=== PATIENT | female | born 1990 | race Hispanic/Latino ===

== ENCOUNTER 2017-06-14 14:22 | Emergency (ER) | payer OTHER ==
[2017-06-14 17:22] LABS: Absolute Lymphocytes (CBC) 2.7 K/uL (0.7-4.9); Absolute Monocytes 0.6 K/uL (0.1-1.3); Absolute Neutrophil 5.5 K/uL (1.8-8.0); Basophils % 0.8 % (0-1.3); Eosinophils % 1.2 % (0-4.4); Hematocrit 39.2 % (36.0-45.0); Lymphocytes % 30.3 % (15.3-44.8); MCH 28.2 pg (27.0-35.0); MPV 8.3 fL (7.6-11.3); Monocytes % 6.7 % (3.3-12.3); RBC Red Blood Cell Count 4.51 M/uL (3.86-4.86)
[2017-06-14 17:34] LABS: Bicarbonate 31 mEq/L (21-31); Glucose Level 88 mg/dL (65-120); Potassium 3.6 mEq/L (3.6-5.0); Sodium Level 138 mEq/L (135-145)
[2017-06-14 17:35] LABS: BUN Blood Urea Nitrogen 8 mg/dL (6-20); Glomerular Filtration Rate > 90 mL/min (=/>90)
--- NOTE | 2017-06-14 18:20 | ER ---
Nurse's Notes [facility] Name: Debra Slaughter Age: 26 yrs Sex: Female : 1990 Arrival Date: 06/14/2017 Time: 14:26 Bed 16 Private MD: Diagnosis: Headache Presentation: 06/14 14:33 Presenting complaint: Patient states: i started having headache all my life, its starts hj on the back to the front of the head; denies nausea and vomiting; whenever i look at my back i feel like my ears are ringing;. Transition of care: patient was not received from another setting of care. Onset of symptoms was June 14, 2017. Care prior to arrival: None. 14:33 Method Of Arrival: Ambulatory 14:33 Acuity: DOMINICK 3 hj Triage Assessment: 14:37 Headache History: The patient has had previous headaches. General: Appears in no hj apparent distress. uncomfortable, Behavior is calm, cooperative, appropriate for age. Pain: Complains of pain in head Pain currently is 6 out of 10 on a pain scale. Pain began Also complains of. Neuro: Level of Consciousness is awake, alert, obeys commands, Oriented to person, place, time, situation, Appropriate for age. 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 - Family history:: not pertinent. - Social history:: Smoking status: Patient/guardian denies using tobacco. - Hospitalizations: : No recent hospitalization is reported. Screenin:44 Abuse screen: Denies threats or abuse. Denies injuries from another. Nutritional aj1 screening: No deficits noted. Tuberculosis screening: No symptoms or risk factors identified. 18:37 Fall Risk None identified. aj1 Assessment: 15:44 General: Appears in no apparent distress. uncomfortable, Behavior is calm, cooperative, aj1 appropriate for age. Pain: Complains of pain in occipital area and base of the skull Pain does not radiate. Pain began a year ago, has been getting worse Alleviated by nothing. Neuro: Level of Consciousness is awake, alert, obeys commands, Oriented to person, place, time, situation, Heater Mechanic are equal bilaterally Moves all extremities. Full function Gait is steady, Speech is normal, Facial symmetry appears normal, Pupils are PERRLA, Intact Reports dizziness, when turning his head headache. Cardiovascular: Patient's skin is warm and dry. Respiratory: Airway is patent Respiratory effort is even, unlabored, Respiratory pattern is regular, symmetrical. GI: No signs and/or symptoms were reported involving the gastrointestinal system. : No signs and/or symptoms were reported regarding the genitourinary system. EENT: No signs and/or symptoms were reported regarding the EENT system. Derm: No signs and/or symptoms reported regarding the dermatologic system. Skin is pink, warm \T\ dry. normal. Musculoskeletal: No signs and/or symptoms reported regarding the musculoskeletal system. Circulation, motion, and sensation intact. 16:45 Reassessment: Patient appears in no apparent distress at this time. [facility] previously documented assessment. Patient and/or family updated on plan of care and expected duration. Pain level reassessed. Patient is alert, oriented x 3, equal unlabored respirations, skin warm/dry/pink. 17:22 Reassessment: Patient appears in no apparent distress at this time. No changes from 1 previously documented assessment. Patient and/or family updated on plan of care and expected duration. Pain level reassessed. Patient is alert, oriented x 3, equal unlabored respirations, skin warm/dry/pink. 18:26 Reassessment: Patient appears in no apparent distress at this time. No [facility] from [facility] previously documented assessment. Patient and/or family updated on plan of care and expected duration. Pain level reassessed. Patient is alert, oriented x 3, equal unlabored respirations, skin warm/dry/pink. Vital Signs: 14:37 BP 142 / 88; Pulse 108; Resp 18; Temp 98.2(TE); Pulse Ox 100% on R/A; Weight 70.76 kg; hj Height 5 ft. 7 in. (170.18 cm); Pain 6/10; 16:41 BP 133 / 81; Pulse 67; Resp 15; Pulse Ox 100% on R/A; 5 17:22 BP 129 / 83; Pulse 80; Resp 18; Pulse Ox 100% on R/A; aj1 18:26 BP 120 / 77; Pulse 97; Resp 18; Pulse Ox 100% on R/A; aj1 14:37 Body Mass Index 24.43 (70.76 kg, 170.18 cm) [place] Coma Score: 18:18 Eye Response: spontaneous(4). Verbal Response: oriented(5). Motor Response: obeys rn commands(6). Total: 15. ED Course: 14:26 Patient arrived in ED. rg4 14:35 Triage completed. hj 14:37 Arm band placed on right wrist. hj 15:33 Ashley Castro RN is Primary Nurse. aj1 15:36 El Serna MD is Attending Physician. rn 15:44 Patient has correct armband on for positive identification. aj1 15:44 No provider procedures requiring assistance completed. aj1 16:30 Initial lab(s) drawn, by me, sent to lab. Inserted saline lock: 20 gauge in right aj1 antecubital area, using aseptic technique. Blood collected. 16:51 Radiology exam delayed due to lab results not completed at this time. (BUN/Creatinine) vm2 test not completed at this time. 18:02 CT Head Brain wo Cont In Process Unspecified. EDMS 18:02 CT Neck Angio In Process Unspecified. EDMS 18:37 IV discontinued, intact, bleeding controlled, No redness/swelling at site. Pressure aj1 dressing applied. Administered Medications: No medications were administered Outcome: 18:19 Discharge ordered by . rn 18:38 Discharged to home ambulatory. aj1 18:38 Condition: good 18:38 Discharge instructions given to patient, Instructed on discharge instructions, follow up and referral plans. Demonstrated understanding of instructions, follow-up care. 18:38 Patient left the ED. aj1 Signatures: Dispatcher [employer] EDAshley Camejo RN RN aj1 El Serna MD MD rn Joaquin, Henry, RN RN hj Garcia, Rubi rg4 Pamela Brennan [facility] Criss Davidson 2 Corrections: (The following items were deleted from the chart) 14:40 14:37 Pulse 108bpm; Resp 18bpm; Pulse Ox 100% RA; Temp 98.2F Temporal; 70.76 kg; Height hj 5 ft. 7 in.; BMI: 24.4; Pain 6/10; hj
--- NOTE | 2017-06-14 18:20 | EDPHYS ---
Physician Documentation [facility] Name: Debra Slaughter Age: 26 yrs Sex: Female : 1990 Arrival Date: 06/14/2017 Time: 14:26 Bed 16 Private MD: ED Physician El Serna HPI: 06/14 16:05 This 26 yrs old Female presents to ER via Ambulatory with complaints of rn Headache. 16:05 The patient complains of pain to the left occipital area and right occipital area. The rn patient describes the headache as aching. Onset: The symptoms/episode began/occurred 1 year(s) ago. Severity of symptoms: At its worst the pain was mild, in the emergency department the pain is unchanged. Headache History: The patient has had previous headaches and this one is similar to previous episodes. The patient has experienced similar episodes in the past, chronically. 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 States that has posterior headache, no focal neurological complaints. . 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 - Family history:: not pertinent. - Social history:: Smoking status: Patient/guardian denies using tobacco. - Hospitalizations: : No recent hospitalization is reported. ROS: 16:05 Constitutional: Negative for fever, chills, and weight loss, Eyes: Negative for injury, rn pain, redness, and discharge, Neck: Negative for injury, and swelling, Cardiovascular: Negative for chest pain, palpitations, and edema, Respiratory: Negative for shortness of breath, cough, wheezing, and pleuritic chest pain, Abdomen/GI: Negative for abdominal pain, nausea, vomiting, diarrhea, and constipation, Back: Negative for injury and pain, MS/Extremity: Negative for injury and deformity, Skin: Negative for injury, rash, and discoloration, Neuro: Negative for weakness, numbness, tingling, and seizure. Exam: 16:05 Constitutional: This is a well developed, well nourished patient who is awake, alert, rn and in no acute distress. Head/Face: Normocephalic, atraumatic. Eyes: Pupils equal round and reactive to light, extra-ocular motions intact. Lids and lashes normal. Conjunctiva and sclera are non-icteric and not injected. Cornea within normal limits. Periorbital areas with no swelling, redness, or edema. Neck: Trachea midline, no thyromegaly or masses palpated, and no cervical lymphadenopathy. Supple, full range of motion without nuchal rigidity, or vertebral point tenderness. No Meningismus. Back: No spinal tenderness. Full range of motion. Skin: Warm, dry, no rashes, no lesions, and no evidence of cellulitis. MS/ Extremity: Pulses equal, no cyanosis. Neurovascular intact. Full, normal range of motion. Equal circumference. Neuro: Awake and alert, GCS 15, oriented to person, place, time, and situation. Cranial nerves II-XII grossly intact. Motor strength 5/5 in all extremities. Sensory grossly intact. Cerebellar exam normal. Normal gait. Vital Signs: 14:37 BP 142 / 88; Pulse 108; Resp 18; Temp 98.2(TE); Pulse Ox 100% on R/A; Weight 70.76 kg; hj Height 5 ft. 7 in. (170.18 cm); Pain 6/10; 16:41 BP 133 / 81; Pulse 67; Resp 15; Pulse Ox 100% on R/A; mh5 17:22 BP 129 / 83; Pulse 80; Resp 18; Pulse Ox 100% on R/A; aj1 18:26 BP 120 / 77; Pulse 97; Resp 18; Pulse Ox 100% on R/A; aj1 14:37 Body Mass Index 24.43 (70.76 kg, 170.18 cm) [place] Coma Score: 18:18 Eye Response: spontaneous(4). Verbal Response: oriented(5). Motor Response: obeys rn commands(6). Total: 15. MDM: 15:36 Patient medically screened. rn 18:18 Differential diagnosis: migraine, tension headache, vasomotor headache, vasculitis, rn autoimmune syndrome. Data reviewed: vital signs, nurses notes, lab test result(s), radiologic studies, CT scan, and as a result, I will discharge patient. Counseling: I had a detailed discussion with the patient and/or guardian regarding: the historical points, exam findings, and any diagnostic results supporting the discharge/admit diagnosis, lab results, radiology results, the need for outpatient follow up, to return to the emergency department if symptoms worsen or persist or if there are any questions or concerns that arise at home. Special discussion: I discussed with the patient/guardian in detail that at this point there is no indication for admission to the hospital. It is understood, however, that if the symptoms persist or worsen the patient needs to return immediately for re-evaluation. Based on the history and exam findings, there is no indication for further emergent testing or inpatient evaluation. I discussed with the patient/guardian the need to see the neurologist for further evaluation of the symptoms. I discussed with the patient/guardian the need to see the meat grading machine operator for further evaluation of the symptoms. 06/14 15:50 Order name: Basic Metabolic Panel; Complete Time: 17:36 rn 06/14 15:50 Order name: CBC with Diff; Complete Time: 17:36 rn 06/14 15:48 Order name: CT Head Brain wo Cont rn 06/14 15:50 Order name: IV Start; Complete Time: 17:02 rn 06/14 15:50 Order name: CT Neck Angio rn 06/14 15:51 Order name: Urine Dipstick-Ancillary (obtain specimen); Complete Time: 17:01 rn 06/14 15:51 Order name: Urine Test (obtain specimen); Complete Time: 17:01 rn Administered Medications: No medications were administered Disposition: 06/14/17 18:19 Discharged to Home. Impression: Headache. - Condition is Stable. - Discharge Instructions: General Headache Without Cause. - Medication Reconciliation Form, Thank You Letter, Antibiotic Education, Prescription Opioid Use form. - Follow up: Private Physician; When: As needed; Reason: Recheck today's complaints, Re-evaluation by your physician. - Problem is an ongoing problem. - Symptoms have improved. Signatures: Dispatcher [employer] EDMS Ashley Castro RN RN aj1 El Serna MD MD rn Joaquin, Henry, RN RN hj
--- NOTE | 2017-06-14 18:44 | RAD REPORT ---
EXAM DESCRIPTION: CT - Neck Angio - 06/14/2017 6:01 pm CLINICAL HISTORY: Headache, possible aneurysm or dissection Due to technical factors with the mold car pusher system a report could not be immediately provided. e findings were telephoned to doctor Stockton at 1815 hours COMPARISON: None. TECHNIQUE: During dynamic enhancement using nonionic IV contrast, axial 2 millimeter thick images we re obtained. Sagittal and coronal reformatted images were generated and reviewed. FINDINGS: Aortic arch is 3 vessel. The carotid and vertebral vasculature show no dissection, stenosi s or vascular malformation. No luminal narrowing seen. No vascular abnormality is identifiable. Circl e of [place] is unremarkable. No aneurysm is identifiable. No bone or soft tissue abnormality identifiable. IMPRESSION: Negative CT angio neck from the aortic arch through the [place] of [place].
--- NOTE | 2017-06-14 18:44 | RAD REPORT ---
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 Findings telephoned to doc dai Stockton 1815 hours COMPARISON: None. TECHNIQUE: Axial 5 mm thick images of the head were obtained without IV contrast. All CT scans are performed using dose optimization technique as appropriate and may include automated exposure control or mA/KV adjustment according to patient size. FINDINGS: No intracranial hemorrhage, mass, edema or shift of mid-line structures. No acute infarcti on changes seen. No abnormal extra-axial fluid collections. Ventricles are normal. Mastoid air cells and visualized portions of the paranasal sinuses are clear. No acute bony findings. IMPRESSION: Negative non-contrast CT head examination.
== END 2017-06-14 18:38 | disposition home or self-care (01) ==
LOC: ER 14:22
DX: R51 Headache (principal)
CPT/HCPCS: 36415; 70450; 70498; 80048; 85025; 99284; Q9967

== ENCOUNTER 2019-02-26 21:14 | Emergency (ER) | payer OTHER ==
[2019-02-26] MEDS ORDERED: dexAMETHasone 4 MG TAB ONE (22:02)
[2019-02-26] MEDS ORDERED: LIDOCAINE VISCOUS 2% SOLN 15 ML UDC ONE (22:02)
[2019-02-26] MEDS ORDERED: IBUPROFEN 400 MG TAB ONE (22:02)
--- NOTE | 2019-02-27 00:08 | ER ---
Nurse's Notes [facility] Name: Debra Slaughter Age: 28 yrs Sex: Female : 1990 Arrival Date: 02/26/2019 Time: 21:15 Bed 16 Private MD: Diagnosis: Viral syndrome Presentation: 02/26 21:19 Presenting complaint: Patient states: LAST WEDNESDAY, FEELS LIKE I HAVE STREP. LOW GRADE rv FEVER AND MY THROAT IS LIKE A SANDPAPER. IT WENT AWAY I THOUGHT I GOT BETTER. AND THEN I START FEELING TIRED AND EXHAUSTED, FEELS LIKE IM SICK AGAIN. Transition of care: patient was not received from another setting of care. Onset of symptoms was February 25, 2019 at 08:00. Risk Assessment: Do you want to hurt yourself or someone else? Patient reports no desire to harm self or others. Initial Sepsis Screen: Does the patient meet any 2 criteria? No. Patient's initial sepsis screen is negative. Does the patient have a suspected source of infection? No. Patient's initial sepsis screen is negative. Care prior to arrival: None. 21:19 Method Of Arrival: Ambulatory 21:19 Acuity: DOMINICK 4 rv Triage Assessment: 21:33 General: Appears in no apparent distress. Behavior is calm, cooperative. Pain: Denies rv pain. EENT: Throat is clear. Neuro: Level of Consciousness is awake, alert, obeys commands, Oriented to person, place, time, situation. Derm: Skin is intact. 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 - Social history:: Smoking status: Patient/guardian denies using tobacco. - Ebola Screening: : No symptoms or risks identified at this time. Screenin:30 Abuse screen: Denies threats or abuse. Nutritional screening: No deficits noted. jb4 Tuberculosis screening: No symptoms or risk factors identified. Fall Risk None identified. Assessment: 21:30 General: Appears in no apparent distress. comfortable, Behavior is calm, cooperative. jb4 Pain: Complains of pain in throat, neck Pain does not radiate. Pain currently is 4 out of 10 on a pain scale. Neuro: Level of Consciousness is awake, alert, obeys commands, Oriented to person, place, time, situation. Cardiovascular: Patient's skin is warm and dry. Respiratory: Airway is patent Respiratory effort is even, unlabored, Respiratory pattern is regular, symmetrical. GI: No signs and/or symptoms were reported involving the gastrointestinal system. : No signs and/or symptoms were reported regarding the genitourinary system. EENT: Throat is clear is reddened with gag reflex present. Derm: Skin is intact, Skin is pink, warm \T\ dry. Musculoskeletal: Circulation, motion, and sensation intact. Range of motion: intact in all extremities. 22:30 Reassessment: Patient appears in no apparent distress at this time. Patient and/or jb4 family updated on plan of care and expected duration. Pain level reassessed. Patient is alert, oriented x 3, equal unlabored respirations, skin warm/dry/pink. 23:30 Reassessment: Patient appears in no apparent distress at this time. Patient and/or jb4 family updated on plan of care and expected duration. Pain level reassessed. Patient is alert, oriented x 3, equal unlabored respirations, skin warm/dry/pink. 02/27 00:16 Reassessment: Patient appears in no apparent distress at this time. Patient and/or jb4 family updated on plan of care and expected duration. Pain level reassessed. Patient is alert, oriented x 3, equal unlabored respirations, skin warm/dry/pink. Vital Signs: 02/26 21:23 BP 137 / 91; Pulse 98; Resp 19; Temp 98.5; Pulse Ox 97% on R/A; Weight 81.65 kg; Height rv 5 ft. 7 in. (170.18 cm) (R); 02/27 00:16 BP 126 / 72; Pulse 84; Resp 16; Pulse Ox 96% on R/A; jb4 02/26 21:23 Body Mass Index 28.19 (81.65 kg, 170.18 cm) rv ED Course: 02/26 21:15 Patient arrived in ED. ag3 21:15 Ryan Mohan MD is Attending Physician. ps1 21:23 Triage completed. rv 21:30 Patient has correct armband on for positive identification. Bed in low position. Call jb4 light in reach. Side rails up X 1. 21:34 Arm band placed on Patient placed in the treatment room, on a stretcher, Patient rv notified of wait time. 21:57 Simon Carmichael, RN is Primary Nurse. jb4 02/27 00:18 No provider procedures requiring assistance completed. Patient did not have IV access jb4 during this emergency room visit. Administered Medications: 02/26 22:15 Drug: Decadron 10 mg Route: PO; jb4 02/27 00:19 Follow up: Response: No adverse reaction jb4 02/26 22:15 Drug: Motrin 800 mg Route: PO; jb4 02/27 00:19 Follow up: Response: No adverse reaction; Pain is decreased jb4 02/26 22:19 Not Given (Patient Refused): Viscous Lidocaine Liquid (4 %) 10 ml Mucous Membrane once jb4 Outcome: 02/27 00:05 Discharge ordered by . ps1 00:18 Discharged to home ambulatory, with family. jb4 00:18 Condition: stable 00:18 Discharge instructions given to patient, Instructed on discharge instructions, follow up and referral plans. medication usage, Demonstrated understanding of instructions, follow-up care, medications, Prescriptions given X 1. 00:20 Patient left the ED. jb4 Signatures: Simon Carmichael, CHRISTIE RN jb4 Ryan Mohan MD MD ps1 Karson Aquino RN RN rv Cristiane Winters
--- NOTE | 2019-02-27 00:09 | EDPHYS ---
Physician Documentation [facility] Name: Debra Slaughter Age: 28 yrs Sex: Female : 1990 Arrival Date: 02/26/2019 Time: 21:15 Bed 16 Private MD: ED Physician Ryan Mohan HPI: 02/26 21:59 This 28 yrs old Female presents to ER via Ambulatory with complaints of Sore ps1 Throat. 21:59 started last Wednesday. Course was improving and now worse. Feels like sandpaper. Pain is ps1 moderate. Worse with swallowing. Feels like she has strep. . 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 - Social history:: Smoking status: Patient/guardian denies using tobacco. - Ebola Screening: : No symptoms or risks identified at this time. ROS: 02/27 00:03 Constitutional: Negative for fever, chills, and weight loss, Eyes: Negative for injury, ps1 pain, redness, and discharge, Cardiovascular: Negative for chest pain, palpitations, and edema, Respiratory: Negative for shortness of breath, cough, wheezing, and pleuritic chest pain, Abdomen/GI: Negative for abdominal pain, nausea, vomiting, diarrhea, and constipation, MS/Extremity: Negative for injury and deformity, Neuro: Negative for headache, weakness, numbness, tingling, and seizure, Psych: Negative for depression, anxiety, suicide ideation, homicidal ideation, and hallucinations. Neuro: Positive for fatigue. Exam: 00:03 Constitutional: This is a well developed, well nourished patient who is awake, alert, ps1 and in no acute distress. Head/Face: Normocephalic, atraumatic. Eyes: Pupils equal round and reactive to light, extra-ocular motions intact. Lids and lashes normal. Conjunctiva and sclera are non-icteric and not injected. Chest/axilla: Normal chest wall appearance and motion. Nontender with no deformity. No lesions are appreciated. Cardiovascular: Regular rate and rhythm. No gallops, murmurs, or rubs. Normal PMI, no JVD. No pulse deficits. Respiratory: Lungs have equal breath sounds bilaterally, clear to auscultation and percussion. No rales, rhonchi or wheezes noted. No increased work of breathing, no retractions or nasal flaring. Abdomen/GI: Soft, non-tender, with normal bowel sounds. No distension or tympany. No guarding or rebound. No evidence of tenderness throughout. Skin: Warm, dry with normal turgor. Normal color with no rashes, no lesions, and no evidence of cellulitis. MS/ Extremity: Pulses equal, no cyanosis. Neurovascular intact. Full, normal range of motion. Neuro: Awake and alert, GCS 15, oriented to person, place, time, and situation. Cranial nerves II-XII grossly intact. Sensory grossly intact. Vital Signs: 02/26 21:23 BP 137 / 91; Pulse 98; Resp 19; Temp 98.5; Pulse Ox 97% on R/A; Weight 81.65 kg; Height rv 5 ft. 7 in. (170.18 cm) (R); 02/27 00:16 BP 126 / 72; Pulse 84; Resp 16; Pulse Ox 96% on R/A; jb4 02/26 21:23 Body Mass Index 28.19 (81.65 kg, 170.18 cm) rv MDM: 02/26 21:18 Patient medically screened. ps1 02/27 00:04 Differential diagnosis: rylee-lomas virus, pharyngitis, viral syndrome. Data reviewed: ps1 vital signs, nurses notes, lab test result(s). 02/26 21:17 Order name: Strep; Complete Time: 22:50 ps1 02/26 22:30 Order name: Miner Screen Profile; Complete Time: 23:38 jb4 02/26 22:40 Order name: Throat Culture EDMS Administered Medications: 02/26 22:15 Drug: Decadron 10 mg Route: PO; jb4 02/27 00:19 Follow up: Response: No adverse reaction jb4 02/26 22:15 Drug: Motrin 800 mg Route: PO; jb4 02/27 00:19 Follow up: Response: No adverse reaction; Pain is decreased jb4 02/26 22:19 Not Given (Patient Refused): Viscous Lidocaine Liquid (4 %) 10 ml Mucous Membrane once jb4 Disposition: 02/27/19 00:05 Discharged to Home. Impression: Viral syndrome. - Condition is Stable. - Discharge Instructions: Viral Respiratory Infection. - Prescriptions for chlorpheniramine maleate 4 mg Oral Tablet - take 1 tablet by ORAL route every 6 hours As needed; 30 tablet. - Medication Reconciliation Form, Thank You Letter, Antibiotic Education, Prescription Opioid Use form. - Follow up: Emergency Department; When: As needed; Reason: Fever > 102 F, Trouble breathing, Worsening of condition. Follow up: Private Physician; When: As needed; Reason: Further diagnostic work-up, Recheck today's complaints, Continuance of care, Re-evaluation by your physician. - Problem is new. - Symptoms are unchanged. Signatures: Dispatcher [employer] EDMS Simon Carmichael RN RN jb4 Ryan Mohan MD MD ps1 Karson Aquino RN RN rv Corrections: (The following items were deleted from the chart) 02/27 00:20 00:05 02/27/2019 00:05 Discharged to Home. Impression: Viral syndrome. Condition is jb4 Stable. Forms are Medication Reconciliation Form, Thank You Letter, Antibiotic Education, Prescription Opioid Use. Follow up: Emergency Department; When: As needed; Reason: Fever > 102 F, Trouble breathing, Worsening of condition. Follow up: Private Physician; When: As needed; Reason: Further diagnostic work-up, Recheck today's complaints, Continuance of care, Re-evaluation by your physician. Problem is new. Symptoms are unchanged. ps1
[2019-02-27 01:34] VITALS: TEMP 98.5
[2019-02-27 01:35] VITALS: BP 126/72; O2SAT 96
== END 2019-02-27 00:20 | disposition home or self-care (01) ==
LOC: ER 21:14
DX: B34.9 Viral infection, unspecified (principal)
CPT/HCPCS: 87070; 36415; 86308; 87081; 99283; J8540

== ENCOUNTER 2019-09-05 12:37 | Emergency (ER) | payer OTHER ==
--- NOTE | 2019-09-05 14:21 | RAD REPORT ---
EXAM DESCRIPTION: RAD - Chest Single View - 09/05/2019 2:15 pm CLINICAL HISTORY: COUGH Chest pain. COMPARISON: No comparisons FINDINGS: Portable technique limits examination quality. The lungs are grossly clear. The heart is normal in size. No displaced fractures. IMPRESSION: No acute intrathoracic process suspected.
--- NOTE | 2019-09-05 14:27 | EDPHYS ---
Physician Documentation [facility] Name: Debra Slaughter Age: 28 yrs Sex: Female : 1990 Arrival Date: 09/05/2019 Time: 12:42 Bed 16 Private MD: ED Physician Ed Weiss HPI: 09/04 14:35 This 28 yrs old Female presents to ER via Ambulatory with complaints of kb Productive Cough, Chest Tightness. 14:35 The patient or guardian reports cough, that is intermittent, described as moderate, kb with no sputum. Onset: The symptoms/episode began/occurred 3 week(s) ago. Severity of symptoms: At their worst the symptoms were mild, moderate, in the emergency department the symptoms are unchanged. Modifying factors: The symptoms are alleviated by nothing, the symptoms are aggravated by nothing. Associated signs and symptoms: Pertinent positives: rhinorrhea, Pertinent negatives: chest pain, diarrhea, ear ache, fever, nausea, sore throat, vomiting. The patient has experienced similar episodes in the past, a few times. The patient has not recently seen a physician. Pt reports cough, congestion and sneezing that started 3 weeks ago. States the cough has lingered and now feels like it has gone to chest. tested for covid 2 weeks ago and was negative. Historical: - Allergies: 12:57 NKDA; ll1 - PMHx: 12:57 gest diabetes; ll1 - PSHx: 12:57 D \T\ C; ll1 - Immunization history:: Flu vaccine is not up to date. - Social history:: Smoking status: Patient reports the use of cigarette tobacco products, smokes one-half pack cigarettes per day, Patient/guardian denies using alcohol, street drugs. ROS: 14:34 Constitutional: Negative for fever, chills, and weight loss, Neck: Negative for injury, kb pain, and swelling, Cardiovascular: Negative for chest pain, palpitations, and edema, Abdomen/GI: Negative for abdominal pain, nausea, vomiting, diarrhea, and constipation, Back: Negative for injury and pain, MS/Extremity: Negative for injury and deformity, Skin: Negative for injury, rash, and discoloration, Neuro: Negative for headache, weakness, numbness, tingling, and seizure. 14:34 ENT: Positive for rhinorrhea, sinus congestion. 14:34 Respiratory: Positive for cough, Negative for dyspnea on exertion, hemoptysis, orthopnea, pleurisy, shortness of breath, sputum production, wheezing. Exam: 14:34 Constitutional: This is a well developed, well nourished patient who is awake, alert, kb and in no acute distress. Head/Face: Normocephalic, atraumatic. ENT: Nares patent. No nasal discharge, no septal abnormalities noted. Tympanic membranes are normal and external auditory canals are clear. Oropharynx with no redness, swelling, or masses, exudates, or evidence of obstruction, uvula midline. Mucous membranes moist. Neck: Trachea midline, no thyromegaly or masses palpated, and no cervical lymphadenopathy. Supple, full range of motion without nuchal rigidity, or vertebral point tenderness. No Meningismus. Chest/axilla: Normal chest wall appearance and motion. Nontender with no deformity. No lesions are appreciated. Cardiovascular: Regular rate and rhythm with a normal S1 and S2. No gallops, murmurs, or rubs. Normal PMI, no JVD. No pulse deficits. Respiratory: Lungs have equal breath sounds bilaterally, clear to auscultation and percussion. No rales, rhonchi or wheezes noted. No increased work of breathing, no retractions or nasal flaring. Abdomen/GI: Soft, non-tender, with normal bowel sounds. No distension or tympany. No guarding or rebound. No evidence of tenderness throughout. Skin: Warm, dry with normal turgor. Normal color with no rashes, no lesions, and no evidence of cellulitis. MS/ Extremity: Pulses equal, no cyanosis. Neurovascular intact. Full, normal range of motion. Neuro: Awake and alert, GCS 15, oriented to person, place, time, and situation. Cranial nerves II-XII grossly intact. Motor strength 5/5 in all extremities. Sensory grossly intact. Cerebellar exam normal. Normal gait. Vital Signs: 12:54 BP 135 / 76; Pulse 99; Resp 18; Temp 98.9; Pulse Ox 99% ; Pain 3/10; ll1 MDM: 12:59 Patient medically screened. kb 14:23 Data reviewed: vital signs, nurses notes. Data interpreted: Pulse oximetry: on room air kb is 99 %. Interpretation: normal. Counseling: I had a detailed discussion with the patient and/or guardian regarding: the historical points, exam findings, and any diagnostic results supporting the discharge/admit diagnosis, radiology results, the need for outpatient follow up, a family practitioner, to return to the emergency department if symptoms worsen or persist or if there are any questions or concerns that arise at home. 09/04 13:11 Order name: Chest Single View XRAY; Complete Time: 14:23 kb Administered Medications: No medications were administered Disposition: 09/05 06:03 Co-signature as Attending Physician, Ed Weiss MD I agree with the assessment and kdr plan of care. Disposition: 09/05/19 14:26 Discharged to Home. Impression: Cough. - Condition is Stable. - Discharge Instructions: Cough, Adult, [id number], Allergies, [id number]. - Medication Reconciliation Form, Thank You Letter, Antibiotic Education, Prescription Opioid Use form. - Follow up: Emergency Department; When: As needed; Reason: Worsening of condition. Follow up: Private Physician; When: 2 - 3 days; Reason: Recheck today's complaints, Continuance of care, Re-evaluation by your physician. Signatures: Dispatcher [employer] EDMS Gertrudis Abel, CAR HEAD LINER INSTALLER-C CAR HEAD LINER INSTALLER-Ckb Ed Weiss MD MD kdr Amanda Lozada RN RN Justina Kan RN RN ll1 Corrections: (The following items were deleted from the chart) 09/04 14:35 14:26 09/05/2019 14:26 Discharged to Home. Impression: Cough. Condition is Stable. vc Forms are Medication Reconciliation Form, Thank You Letter, Antibiotic Education, Prescription Opioid Use. Follow up: Emergency Department; When: As needed; Reason: Worsening of condition. Follow up: Private Physician; When: 2 - 3 days; Reason: Recheck today's complaints, Continuance of care, Re-evaluation by your physician. kb
--- NOTE | 2019-09-05 14:27 | ER ---
Nurse's Notes [facility] Name: Debra Slaughter Age: 28 yrs Sex: Female : 1990 Arrival Date: 09/05/2019 Time: 12:42 Bed 16 Private MD: Diagnosis: Cough Presentation: 09/04 12:54 Chief complaint: Patient states: Cough for 3 weeks. Lots of sinus drainage. No known ll1 fever. and child got sick 2 weeks ago but they are better. Now has chest tightness and upper back aches for 4 days. Husbands covid test negative. Requets covid test. Coronavirus screen: Surgical mask placed on patient. Patient moved to private room, placed in contact and droplet isolation with eye protection until further assessment. Patient reports a cough. Patient denies shortness of breath or difficulty breathing. Patient denies measured and/or subjective temperature greater than 100.4F prior to today's visit. Patient denies travel on a cruise ship or to a country the [facility] currently lists as an affected area. Patient denies contact with known and/or suspected case of COVID-19. Ebola Screen: Patient denies travel to an Ebola-affected area in the 21 days before illness onset. Initial Sepsis Screen: Does the patient meet any 2 criteria? HR > 90 bpm. No. Patient's initial sepsis screen is negative. Risk Assessment: Do you want to hurt yourself or someone else? Patient reports no desire to harm self or others. Onset of symptoms was August 13, 2019. 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 - Social history:: Smoking status: Patient reports the use of cigarette tobacco products, smokes one-half pack cigarettes per day, Patient/guardian denies using alcohol, street drugs. Screenin:35 Abuse screen: Denies threats or abuse. Nutritional screening: No deficits noted. ll1 Tuberculosis screening: No symptoms or risk factors identified. Fall Risk None identified. Total Estrella Fall Scale indicates No Risk (0-24 pts). Assessment: 13:00 General: Appears in no apparent distress. Behavior is calm, cooperative. Pain: ll1 Complains of pain in chest Pain currently is 3 out of 10 on a pain scale. Quality of pain is described as pressure, Pain began 1 day ago. Pain: Pain began 2-3 days ago. Neuro: No deficits noted. Cardiovascular: No deficits noted. Respiratory: Reports cough that is non-productive, + nasal congestion Airway is patent Trachea midline Respiratory effort is even, unlabored, Respiratory pattern is regular, symmetrical, Breath sounds are clear bilaterally. 14:34 Reassessment: Patient appears in no apparent distress at this time. Patient and/or vc family updated on plan of care and expected duration. Pain level reassessed. Patient is alert, oriented x 3, equal unlabored respirations, skin warm/dry/pink. Vital Signs: 12:54 BP 135 / 76; Pulse 99; Resp 18; Temp 98.9; Pulse Ox 99% ; Pain 3/10; ll1 ED Course: 12:42 Patient arrived in ED. fj1 12:45 Gertrudis Abel F[facility]-C [facility] kb 12:45 Ed Weiss MD is Attending Physician. kb 12:56 Triage completed. ll1 12:57 Arm band placed on Patient placed in an exam room, on a stretcher. ll1 13:02 Justina Irvin RN is Primary Nurse. ll1 14:15 Chest Single View XRAY In Process Unspecified. EDMS 14:32 Justina Irvin RN is Primary Nurse. ll1 14:35 Patient has correct armband on for positive identification. Bed in low position. Call ll1 light in reach. Side rails up X 1. 14:35 No provider procedures requiring assistance completed. Patient did not have IV access vc during this emergency room visit. Administered Medications: No medications were administered Outcome: 14:26 Discharge ordered by MD. kb 14:34 Discharged to home ambulatory. vc 14:34 Condition: good 14:34 Discharge instructions given to patient, Instructed on discharge instructions, follow up and referral plans. Demonstrated understanding of instructions, follow-up care. 14:35 Patient left the ED. vc Signatures: Dispatcher [employer] EDAR Gertrudis Abel FNP-C FNP-Ckb Calcote, Vanessa, RN RN vc Saad Montes [facility] Justina Irvin RN RN ll1 Corrections: (The following items were deleted from the chart) 12:58 12:54 Chief complaint: Patient states: Cough for 3 weeks. Lots of sinus drainage. No ll1 known fever. and child got sick 2 weeks ago but they are better. Now has chest tightness and upper back aches for 4 days. Husbands covid test negative. ll1
[2019-09-05 14:39] VITALS: BP 135/76; TEMP 98.9; O2SAT 99
--- OUTSIDE RECORDS SUMMARY | 2019-09-05 16:36 | XMS REPORT | Continuity of Care Document ---
:1990 Author Organization [employer] Care Team Providers Name Role Phone [employer] Unavailable Un available Problems Problem Status Onset Classification Date Comments Sourc e Date Reported Raynaud's syndrome Active Diagnosis 05/03/2014 Allison Najam Keratoconjunctivitis Active Diagnosis 05/03/2014 Allison sicca, not specified as Najam Sjogren's Elevated TOSHA Active Diagnosis 05/03/2014 Allison Najam Lumbago Active Diagnosis 05/03/2014 Allison Najam Medications Medication Details Route Status Patient Ordering Order Source Instructions Provider Date Meloxicam 1 tablet Orally Active 15 MG Orally Najam 05/02/19 Allison Once a day prn 15 Najam Allergies, Adverse Reactions, Alerts Substance Category Reaction Severity Reaction Status Date Comments S ource type Reported N.K.D.A. Adverse Info Not Adverse Active Sabe en Reaction Available Reaction 5 Lorena m Immunizations No Data Provided for This Section Results No Data Provided for This Section Pathology Reports No Data Provided for This Section Diagnostic Reports No Data Provided for This Section Consultation Notes No Data Provided for This Section Discharge Summaries No Data Provided for This Section History and Physicals No Data Provided for This Section Vital Signs Vital Sign Value Date Comments Source Height 66 05/02/2014 Allison Najam Diastolic (mm Hg) 79 05/02/2014 Allison Jane am Systolic (mm Hg) 124 05/02/2014 Allison Lorena m Weight 150 05/02/2014 Allison Najam Encounters Location Location Encounter Encounter Reason Attending ADM DC Stat us Source Details Type Number For Provider Date Date Visit Rheumatology Positive [id number] 05/02 05/02 [facility] TOSHA [id number] /2014 Najam [id number] Procedures No Data Provided for This Section Assessment and Plan No Data Provided for This Section Plan of Care No Data Provided for This Section Social History Social History Date Source Social History ElementQualifiersDate Reported 05/02/2014 Allison Najam Smoking status: . Are you a: Current Smoker May 02, 2014 alcohol no. May 02, 2014 Family History No Data Provided for This Section Advance Directives No Data Provided for This Section Functional Status No Data Provided for This Section
== END 2019-09-05 14:35 | disposition home or self-care (01) ==
LOC: ER 12:37
DX: R05 Cough (principal); F17.210 Nicotine dependence, cigarettes, uncomplicated
CPT/HCPCS: 71045; 99283

== ENCOUNTER 2021-08-19 18:23 | Emergency (ER) | payer OTHER ==
--- NOTE | 2021-08-19 19:59 | RAD REPORT ---
EXAM DESCRIPTION: Melo Single View08/19/2021 7:54 pm CLINICAL HISTORY: sob COMPARISON: 2019 FINDINGS: The lungs appear clear of acute infiltrate. The heart is normal size IMPRESSION: No acute abnormalities displayed
[2021-08-19 20:17] LABS: Hematocrit 31.6 % (36.0-45.0); Lymphocytes % 36.1 % (15.3-44.8); MPV 6.9 fL (7.6-11.3); RBC Red Blood Cell Count 3.72 M/uL (3.86-4.86)
[2021-08-19 20:18] LABS: Protime INR 1.18
[2021-08-19 20:35] LABS: Bilirubin Direct 0.1 mg/dL (0-0.2); Bilirubin Total 0.2 mg/dL (0.2-1.0); Magnesium 1.8 mg/dL (1.8-2.4); Potassium 4.1 mmol/L (3.5-5.1); Protein, Total 6.3 g/dL (6.4-8.2); Troponin High Sensitivity 3.7 pg/mL (<58.9)
[2021-08-19] MEDS ORDERED: NA CHLORIDE 0.9% 1,000 ML ONE (20:50)
--- NOTE | 2021-08-19 21:40 | RAD REPORT ---
EXAM DESCRIPTION: CT - Chest For Pe Angio - 08/19/2021 9:21 pm CLINICAL HISTORY: Chest pain COMPARISON: None. TECHNIQUE: Dynamically enhanced axial 3 mm thick images of the chest were obtained during administra tion of <100> mL Isovue 370 IV contrast. Coronal and oblique reconstruction images were generated and reviewed. Exam utilizes a protocol for optimal evaluation of pulmonary arterial tree. Maximum intensity projections 3D imaging was utilized All CT scans are performed using dose optimization technique as appropriate and may include automated exposure control or mA/KV adjustment according to patient size. FINDINGS: A pulmonary embolus is not seen. A thoracic aortic aneurysm is not noted. A pleural effusion is not seen. A pericardial effusion is not seen. A lung consolidation is not present. IMPRESSION: Negative for a pulmonary embolism.
--- NOTE | 2021-08-19 22:25 | ER ---
Nurse's Notes [facility] Name: Debra Slaughter Age: 30 yrs Sex: Female : 1990 Arrival Date: 08/19/2021 Time: 18:24 Bed 18 Private MD: Diagnosis: Chest pain, unspecified;Dehydration Presentation: 08/19 18:33 Chief complaint: Patient states: she had a hysterectomy, appendectomy, bowel resection ap3 and a partial cecectomy on August 05 for stage 4 endometriosis. Then due to complications, and becoming septic from a bowel leak patient then had an ileostomy placed on 08/09/2021. Patient comes in today after speaking with her surgeon for feeling weak, and was getting low blood pressure readings. Patient reports receiving 2 bags of fluids in the office yesterday and another bag of fluids at home today. Patient presents with a right upper arm PICC line in place. Coronavirus screen: At this time, the client does not indicate any symptoms associated with coronavirus-19. Ebola Screen: No symptoms or risks identified at this time. Initial Sepsis Screen: Does the patient meet any 2 criteria? No. Patient's initial sepsis screen is negative. Does the patient have a suspected source of infection? No. Patient's initial sepsis screen is negative. Risk Assessment: Do you want to hurt yourself or someone else? Patient reports no desire to harm self or others. Onset of symptoms was August 2021. 18:33 Method Of Arrival: Ambulatory ap3 18:33 Acuity: DOMINICK 3 ap3 Triage Assessment: 18:39 General: Appears uncomfortable, Behavior is calm. Pain: Complains of pain in chest and ap3 abdomen Quality of pain is described as tightness. Neuro: Level of Consciousness is awake, alert, obeys commands, Oriented to person, place, time, situation, Appropriate for age Speech is normal. Cardiovascular: Patient's skin is warm and dry. Respiratory: Reports shortness of breath Airway is patent Respiratory effort is even, unlabored, Respiratory pattern is regular, symmetrical, Onset: The symptoms/episode began/occurred gradually, the patient has mild shortness of breath. GI: Ileostomy site Ostomy appliance is intact. Reports lower abdominal pain, upper abdominal pain. 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 - Social history:: Smoking status: Patient denies any tobacco usage or history of. Screenin:40 Abuse screen: Denies threats or abuse. Nutritional screening: Had unintentional weight ap3 loss of 10 pounds or more. Has had N/V for 3 or more days. Tuberculosis screening: No symptoms or risk factors identified. 22:22 Fall Risk IV access (20 points). kd3 Assessment: 22:21 Cardiovascular: Rhythm is sinus rhythm. Respiratory: Airway is patent Trachea midline kd3 Respiratory effort is even, unlabored, Breath sounds are clear. Vital Signs: 18:33 BP 114 / 77; Pulse 89; Resp 17; Temp 97.8; Pulse Ox 100% ; Weight 54.43 kg; Height 5 ap3 ft. 6 in. (167.64 cm); 20:14 BP 105 / 65; Pulse 76; Pulse Ox 100% on R/A; oe 20:16 BP 113 / 64; Pulse 76; Pulse Ox 100% on R/A; oe 20:18 BP 119 / 71; Pulse 79; Pulse Ox 100% ; oe 22:23 BP 107 / 63; Pulse 75; Resp 16; Pulse Ox 99% on R/A; kd3 18:33 Body Mass Index 19.37 (54.43 kg, 167.64 cm) ap3 ED Course: 18:24 Patient arrived in ED. ja2 18:30 Archie Sommers PA is PHCP. cp 18:30 El Serna MD is Attending Physician. cp 18:36 Triage completed. ap3 18:40 Arm band placed on left wrist. ap3 19:15 Kristel Tomlinson, CHRISTIE is Primary Nurse. kd3 19:55 XRAY Chest (1 view) In Process Unspecified. EDMS 21:22 CT Chest For PE Angio In Process Unspecified. EDMS 22:22 Patient has correct armband on for positive identification. Client placed on continuous kd3 cardiac and pulse oximetry monitoring. NIBP monitoring applied. 22:45 No provider procedures requiring assistance completed. pt came with right upper picc kd3 from home. Administered Medications: 20:53 Drug: NS 0.9% 1000 ml Route: IV; Rate: 1 bolus; Site: right upper arm; vc1 22:45 Follow up: Response: No adverse reaction; IV Status: Completed infusion kd3 Medication: 22:22 VIS not applicable for this client. kd3 Outcome: 22:24 Discharge ordered by . ingrid 22:45 Discharged to home ambulatory. kd3 22:45 Condition: stable 22:45 Discharge instructions given to patient, Instructed on discharge instructions, follow up and referral plans. Demonstrated understanding of instructions, follow-up care. 22:46 Patient left the ED. kd3 Signatures: Dispatcher [employer] EDMS Archie Sommers PA PA cp Espinosa, Orlando oe Prokisch, Amanda, RN RN ap3 Ines Sosa Kyli, RN RN kd3 Amanda Lozada RN RN vc1
--- NOTE | 2021-08-19 22:25 | EDPHYS ---
Physician Documentation [facility] Name: Debra Slaughter Age: 30 yrs Sex: Female : 1990 Arrival Date: 08/19/2021 Time: 18:24 Bed 18 Private MD: ED Physician El Serna HPI: 08/19 19:20 This 30 yrs old Female presents to ER via Ambulatory with complaints of cp Shortness Of Breath, Chest Pain, Low Blood Pressure. 19:20 The patient has shortness of breath at rest. cp 19:20 Onset: The symptoms/episode began/occurred today. Duration: The symptoms are cp continuous, and are unchanged since they started. Associated signs and symptoms: Pertinent positives: chest pain, low blood pressure, Pertinent negatives: productive cough, diaphoresis, fever, vomiting. Severity of symptoms: in the emergency department the symptoms are unchanged despite home interventions. 19:20 Patient reports having recent hysterectomy and appendectomy for endometriosis on cp 08-05-2021. Complications occurred that caused her to be septic and need a bowel resection. 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 - Social history:: Smoking status: Patient denies any tobacco usage or history of. ROS: 19:25 Constitutional: Negative for body aches, chills, fever, poor PO intake. cp 19:25 Eyes: Negative for injury, pain, redness, and discharge. cp 19:25 ENT: Negative for drainage from ear(s), ear pain, sore throat, difficulty swallowing, difficulty handling secretions. 19:25 Cardiovascular: Positive for chest pain. 19:25 Respiratory: Positive for shortness of breath, Negative for wheezing. 19:25 Abdomen/GI: Positive for nausea, Negative for abdominal pain, constipation. 19:25 Neuro: Negative for altered mental status, headache, weakness. 19:25 All other systems are negative. Exam: 19:30 Constitutional: The patient appears in no acute distress, alert, awake, cp non-diaphoretic, non-toxic, well developed, well nourished. 19:30 Head/Face: Normocephalic, atraumatic. cp 19:30 Eyes: Periorbital structures: appear normal, Conjunctiva: normal, no exudate, no injection, Sclera: no appreciated abnormality, Lids and lashes: appear normal, bilaterally. 19:30 ENT: External ear(s): are unremarkable, Nose: is normal, Mouth: Lips: moist, Oral mucosa: pink and intact, moist, Posterior pharynx: Airway: no evidence of obstruction, patent. 19:30 Neck: ROM/movement: is normal, is supple, without pain, no range of motions limitations. 19:30 Chest/axilla: Inspection: normal, Palpation: is normal, no crepitus, no tenderness. 19:30 Cardiovascular: Rate: normal, Rhythm: regular. 19:30 Respiratory: the patient does not display signs of respiratory distress, Respirations: normal, no use of accessory muscles, no retractions, labored breathing, is not present, Breath sounds: are clear throughout, no decreased breath sounds, no stridor, no wheezing. 19:30 Abdomen/GI: Inspection: scar(s), are noted in the midline, RLQ ileostomy, Bowel sounds: active, all quadrants, Palpation: abdomen is soft and non-tender, in all quadrants. 19:30 Back: CVA tenderness, is absent. 19:30 Skin: cellulitis, is not appreciated, no rash present. 19:30 Neuro: Orientation: to person, place \T\ time. Mentation: is normal, Motor: moves all fours, strength is normal, Sensation: is normal. 19:59 ECG was reviewed by the Attending Physician. cp Vital Signs: 18:33 BP 114 / 77; Pulse 89; Resp 17; Temp 97.8; Pulse Ox 100% ; Weight 54.43 kg; Height 5 ap3 ft. 6 in. (167.64 cm); 20:14 BP 105 / 65; Pulse 76; Pulse Ox 100% on R/A; oe 20:16 BP 113 / 64; Pulse 76; Pulse Ox 100% on R/A; oe 20:18 BP 119 / 71; Pulse 79; Pulse Ox 100% ; oe 22:23 BP 107 / 63; Pulse 75; Resp 16; Pulse Ox 99% on R/A; kd3 18:33 Body Mass Index 19.37 (54.43 kg, 167.64 cm) ap3 MDM: 18:49 Patient medically screened. 22:24 Data reviewed: vital signs, nurses notes, lab test result(s), radiologic studies, CT cp scan, plain films. 22:24 Differential diagnosis: Myocardial Infarction pneumonia, Pneumothorax pulmonary edema, cp Pulmonary Embolism Sepsis. Test interpretation: by ED physician or midlevel provider: ECG, plain radiologic studies. Counseling: I had a detailed discussion with the patient and/or guardian regarding: the historical points, exam findings, and any diagnostic results supporting the discharge/admit diagnosis, lab results, radiology results, to return to the emergency department if symptoms worsen or persist or if there are any questions or concerns that arise at home. 08/19 19:18 Order name: Basic Metabolic Panel; Complete Time: 20:41 cp 08/19 20:41 Interpretation: Normal except: CL 109; CRE 0.51. cp 08/19 19:18 Order name: CBC with Diff; Complete Time: 20:29 cp 08/19 20:29 Interpretation: Normal except: RBC 3.72; HGB 10.5; HCT 31.6; PLT 543; MPV 6.9. cp 08/19 19:18 Order name: LFT's; Complete Time: 20:41 cp 08/19 22:17 Interpretation: Normal except: AST 11; ALK 43; TP 6.3; ALB 3.0; A/G 0.9. cp 08/19 19:18 Order name: Magnesium; Complete Time: 20:41 cp 08/19 19:18 Order name: NT PRO-BNP; Complete Time: 20:41 cp 08/19 19:18 Order name: PT-INR; Complete Time: 20:29 cp 08/19 19:18 Order name: Orthostatics; Complete Time: 20:26 cp 08/19 19:18 Order name: Troponin HS; Complete Time: 20:41 cp 08/19 19:18 Order name: XRAY Chest (1 view); Complete Time: 20:07 cp 08/19 20:07 Interpretation: Report review. 08/19 19:18 Order name: EKG; Complete Time: 19:19 cp 08/19 19:18 Order name: Cardiac monitoring; Complete Time: 20:13 cp 08/19 19:18 Order name: EKG - Nurse/Tech; Complete Time: 20:12 cp 08/19 20:42 Order name: CT Chest For PE Angio; Complete Time: 22:14 cp 08/19 22:14 Interpretation: Report reviewed. 08/19 19:18 Order name: IV Saline Lock; Complete Time: 20:12 cp 08/19 19:18 Order name: Labs collected and sent; Complete Time: 20:12 cp 08/19 19:18 Order name: O2 Per Protocol; Complete Time: 20:12 cp 08/19 19:18 Order name: O2 Sat Monitoring; Complete Time: 20:12 cp 08/19 22:14 Order name: PO challenge; Complete Time: 22:38 cp EC:59 Rate is 75 beats/min. Rhythm is regular. IA interval is normal. QRS interval is normal. cp QT interval is normal. T waves are Inverted in lead aVR. Interpreted by me. Reviewed by me. Administered Medications: 20:53 Drug: NS 0.9% 1000 ml Route: IV; Rate: 1 bolus; Site: right upper arm; vc1 22:45 Follow up: Response: No adverse reaction; IV Status: Completed infusion kd3 Disposition Summary: 08/19/21 22:24 Discharge Ordered Location: Home cp Problem: new cp Symptoms: have improved cp Condition: Stable cp Diagnosis - Chest pain, unspecified cp - Dehydration cp Followup: cp - With: Private Physician - When: 1 - 2 days - Reason: Recheck today's complaints Discharge Instructions: - Discharge Summary Sheet cp - Nonspecific Chest Pain, Adult cp - Dehydration, Adult cp Forms: - Medication Reconciliation Form cp - Thank You Letter cp - Antibiotic Education cp - Prescription Opioid Use cp Signatures: Dispatcher [employer] EDMS Archie Sommers PA PA cp Jaylene Chavez RN RN ap3 Kristel Tomlinson RN RN kd3 Amanda Lozada RN RN vc1
[2021-08-19] MEDS ORDERED: HEPARIN 500 UNIT/5 ML SYR IV ONE (22:41)
[2021-08-19 23:29] VITALS: TEMP 97.8
[2021-08-19 23:40] VITALS: BP 107/63; O2SAT 99
--- NOTE | 2021-08-20 08:07 | EKG ---
Test Date: 2021-08-19 Test Time: 19:54:45 Production Leader: SHARON MEASUREMENT RESULTS: Intervals: Rate: 75 SC: 188 QRSD: 72 QT: 370 QTc: 413 [place]: P: 61 SC: 188 QRS: 76 T: 41 INTERPRETIVE STATEMENTS: Normal sinus rhythm Cannot rule out Anterior infarct, age undetermined Abnormal ECG No previous ECG available for comparison Electronically Signed On 08-20-21 08:05:29 CDT by Germán Douglas
== END 2021-08-19 22:46 | disposition home or self-care (01) ==
LOC: ER 18:23
DX: R07.9 Chest pain, unspecified (principal); E86.0 Dehydration; Z88.5 Allergy status to narcotic agent; Z90.710 Acquired absence of both cervix and uterus; Z98.890 Other specified postprocedural states
CPT/HCPCS: 93005; 85025; 80048; 36415; 83735; 85610; 80076; 84484; 83880; 71275; 71045; Q9967; J1642; J7030; 96360; 96361; 99284

== ENCOUNTER → 2023-03-01 | Emergency (ER) | payer BC ==
[~2023-03-01] MED LIST: HYDROMORPHONE HCL 1 MG/ML INJ ONE; KETOROLAC 30 MG/ML INJ ONE; METOCLOPRAMIDE 10 MG/2mL INJ ONE; MORPHINE 4 MG/ML SYR ONE; NA CHLORIDE 0.9% 1,000 ML ONE; NA CHLORIDE 0.9% 250 ML ONE; ONDANSETRON 4 MG/2 ML VIAL ONE; PANTOPRAZOLE 40 MG INJ ONE; PIPERACIL/TAZO 2.25 GM VIAL IV ONE
[2023-03-01 02:11] LABS: Absolute Lymphocytes (CBC) 2.4 K/uL (0.7-4.9); Lymphocytes % 21.4 % (15.3-44.8); MCV 88.3 fL (80-100); MPV 7.2 fL (7.6-11.3); Platelets 233 thou/uL (152-406); RBC Red Blood Cell Count 4.31 M/uL (3.86-4.86)
[2023-03-01 02:23] LABS: Albumin 3.4 g/dL (3.4-5.0); Bilirubin Total 0.3 mg/dL (0.2-1.0); Potassium 3.4 mEq/L (3.5-5.1); Protein, Total 7.4 g/dL (6.4-8.2)
[2023-03-01 04:44] LABS: Urine Bilirubin NEGATIVE (Negative); Urine Blood Negative (Negative); Urine Clarity Clear (Clear); Urine Color Colorless (Yellow); Urine Glucose NEGATIVE (Negative); Urine Protein NEGATIVE (Negative); Urine Urobilinogen Normal (Normal)
--- NOTE | 2023-03-01 05:30 | ER ---
Nurse's Notes [facility] Name: Debra Slaughter Age: 32 yrs Sex: Female : 1990 Arrival Date: 03/01/2023 Time: 01:40 Bed 16 Private MD: Diagnosis: Acute colon perforation, Free intraperitoneal air, acute peritonitis secondary to colonic perforation Presentation: 03/01 01:41 Chief complaint: Patient states: c/o rectal pain beginning after vaginal intercourse la4 with her spouse. States that she had some bleeding with wiping. Reports extensive hx of endometriosis, partial hysterectomy w/ right oopherectomy, appendectomy, hemorrhoids, ileostomy w/ reversal. Coronavirus screen: Vaccine status: Patient reports receiving the 2nd dose of the covid vaccine. Ebola Screen: Patient negative for fever greater than or equal to 101.5 degrees Fahrenheit, and additional compatible Ebola Virus Disease symptoms Patient denies exposure to infectious person. Patient denies travel to an Ebola-affected area in the 21 days before illness onset. No symptoms or risks identified at this time. Initial Sepsis Screen: Does the patient meet any 2 criteria? No. Patient's initial sepsis screen is negative. Does the patient have a suspected source of infection? No. Patient's initial sepsis screen is negative. Risk Assessment: Do you want to hurt yourself or someone else? Patient reports no desire to harm self or others. Onset of symptoms was March 01, 2023. 01:41 Method Of Arrival: EMS: [facility] la4 01:41 Acuity: DOMINICK 3 la4 Triage Assessment: 01:44 General: Appears uncomfortable, Behavior is calm, cooperative, appropriate for age. la4 Pain: Complains of pain in gluteal cleft Pain radiates to right lower quadrant and left lower quadrant Pain currently is 10 out of 10 on a pain scale. Quality of pain is described as heavy, pressure, sharp. Neuro: No deficits noted. Bethea Agitation-Sedation Scale (RASS): 0 - Alert and Calm Level of Consciousness is awake, alert, obeys commands, Oriented to person, place, time, situation, Appropriate for age. Cardiovascular: No deficits noted. Heart tones S1 S2 Capillary refill < 3 seconds is brisk Patient's skin is warm and dry. Pulses are all present. Edema is absent. Respiratory: No deficits noted. Airway is patent Respiratory effort is even, unlabored, Respiratory pattern is regular, symmetrical, Breath sounds are clear. GI: No deficits noted. Abdomen is flat, non-distended, Bowel sounds present X 4 quads. Abd is non tender X 4 quads. : Patient is sexually active. 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 - Social history:: Smoking status: Patient denies any tobacco usage or history of. - Family history:: not pertinent. Screenin:14 [facility] ED Fall Risk Assessment (Adult) History of falling in the last 3 months, la4 including since admission No falls in past 3 months (0 pts) Confusion or Disorientation No (0 pts) Intoxicated or Sedated No (0 pts) Impaired Gait No (0 pts) Mobility Assist Device Used No (0 pt) Altered Elimination No (0 pt) Score/Fall Risk Level 0 - 2 = Low Risk Maintained a safe environment, Provided non-skid footwear, Hourly rounding (assess needs \\T\\ fall precautionary measures) done. Abuse screen: Denies threats or abuse. Denies injuries from another. Nutritional screening: No deficits noted. Tuberculosis screening: No symptoms or risk factors identified. Assessment: 02:14 Reassessment: No changes from previously documented assessment. Patient and/or family [facility] updated on plan of care and expected duration. Pain level reassessed. see triage assessment. General: Appears uncomfortable, Behavior is calm, cooperative, agitated. Neuro: Bethea Agitation-Sedation Scale (RASS): 0 - Alert and Calm Level of Consciousness is awake, alert, obeys commands, Oriented to person, place, time, situation, Appropriate for age. Cardiovascular: No deficits noted. Respiratory: No deficits noted. GI: Bowel sounds present X 4 quads. Abd is soft and non tender X 4 quads. Reports Rectal pain stating "It fells like my bottom is going to fall out.". : No deficits noted. 06:39 Reassessment: EMS here for patient transport to [facility]. Pt going to or4 room 857. Attempted report twice remaining on hold w/ only a prerecorded message with no answer on phone number [phone] since 6am. EMS given report and copy of SBAR. Pt ambulatory to bathroom prior to leaving. Unable to give report. EMT notified of not being able to call report to the floor. Pt given dose of dilaudid prior to transport to other facility. Charge nurse notified of not being able to call report as well. Vital Signs: 01:44 BP 128 / 88; Pulse 95; Resp 20; Temp 98.9; Pulse Ox 100% on R/A; Weight 58.06 kg; la4 Height 5 ft. 6 in. ; Pain 10/10; 02:14 BP 119 / 80; Pulse 85; Resp 20; Pulse Ox 98% ; Pain 5/10; la4 02:55 BP 114 / 70; Pulse 65; Resp 18; Pulse Ox 97% ; Pain 8/10; la4 05:30 BP 106 / 62; Pulse 72; Resp 16; Pulse Ox 99% ; Pain 3/10; la4 06:23 BP 97 / 59; Pulse 72; Resp 18; Pulse Ox 99% ; la4 06:39 BP 100 / 61; Pulse 75; Resp 18; Pulse Ox 100% on R/A; Pain 8/10; la4 01:44 Body Mass Index 20.66 (58.06 kg, 167.64 cm) la4 01:44 Pain Scale: Adult la4 02:14 Pain Scale: Adult la4 02:55 Pain Scale: Adult la4 05:30 Pain Scale: Adult la4 06:39 Pain Scale: Adult la4 02:14 after morphine and toradol IVP la4 Walling Coma Score: 02:14 Eye Response: spontaneous(4). Motor Response: obeys commands(6). Verbal Response: la4 oriented(5). Total: 15. ED Course: 01:41 Patient arrived in ED. jj6 01:41 Ulysses Houser RN is Primary Nurse. la4 01:44 Triage completed. la4 01:44 Rafal Hamlin MD is Attending Physician. sp4 01:44 Arm band placed on left wrist. Patient placed in an exam room, on a stretcher, on pulse la4 oximetry. 02:14 Patient has correct armband on for positive identification. Placed in gown. Bed in low la4 position. Call light in reach. Side rails up X2. Provided Education on: plan of care discussed. 02:14 Inserted saline lock: 20 gauge in left forearm, using aseptic technique. Blood la4 collected. 02:18 Awaiting lab results, Awaiting radiology results. Awaiting re-evaluation by ER la4 provider, Awaiting: pelvic and rectal exam. 02:19 CBC with Diff Sent. la4 02:19 CMP Sent. la4 02:19 Lipase Sent. la4 03:00 No provider procedures requiring assistance completed. Assist provider with pelvic la4 exam: Set up pelvic tray. Performed by Rafal Hamlin MD Patient tolerated well. Served as a gambling box person during rectal exam. 03:00 Inserted saline lock: 20 gauge in left forearm, using aseptic technique. la4 03:17 CT Abd/Pelvis - IV Contrast Only In Process Unspecified. EDMS 05:30 Initiated transfer to [facility], spoke with Alin. 05:50 [id number] Harika Funes per Alin Head. 06:18 EMS accepted for transport with an ETA \\T\\ [id number]. 06:56 Patient transferred, IV remains in place. la4 Administered Medications: 02:00 Drug: NS 0.9% IV 1000 ml IV at 1 bolus Per protocol; 1000 mL bolus Route: IV; Rate: 1 la4 bolus; Site: left forearm; 02:55 Follow up: BP 114 / 70; Pulse 65 bpm; Resp 18 bpm; Pulse Ox 97% ; Pain 8/10 Adult; la4 Response: No adverse reaction; IV Status: Completed infusion; IV Intake: 1000ml 02:00 Drug: TORadol - Ketorolac IVP 30 mg IVP once Route: IVP; Site: left forearm; la4 02:00 Drug: Ondansetron IVP 4 mg IVP once; over 2 minutes Route: IVP; Site: right forearm; la4 02:00 Drug: morphine IVP or IV 4 mg IVP once over 4 mins Route: IVP; Infused Over: 4 mins; la4 Site: left forearm; 03:30 Drug: morphine IVP or IV 4 mg IVP once over 4 mins Route: IVP; Infused Over: 4 mins; la4 Site: left forearm; 04:33 Drug: HYDROmorphone IVP 1 mg IVP once Route: IVP; Site: left forearm; la4 05:30 Follow up: Response: No adverse reaction; Pain is decreased la4 05:30 Follow up: BP 106 / 62; Pulse 72 bpm; Resp 16 bpm; Pulse Ox 99% ; Pain 3/10 Adult la4 06:23 Follow up: BP 97 / 59; Pulse 72 bpm; Resp 18 bpm; Pulse Ox 99% ; Response: No adverse la4 reaction; Pain is decreased 04:33 Drug: metoCLOPramide IVP 10 mg IVP once; over 1 to 2 minutes Route: IVP; Site: left la4 forearm; 05:30 Follow up: Response: No adverse reaction la4 05:25 Drug: Piperacillin-Tazobactam IVPB 3.375 grams IVPB once over 60 mins; (mix in NS 100 la4 mL) Route: IVPB; Infused Over: 60 mins; Site: left forearm; 05:25 Drug: D5-NS IV 1000 ml IV at 125 ml/hr continuous Route: IV; Rate: 125 ml/hr; Site: la4 left forearm; 05:40 Drug: Pantoprazole IVP 80 mg IVP once Route: IVP; Site: left forearm; la4 05:40 Drug: Pantoprazole IV 8 mg/hr IV at 25 ml/hr continuous; (Standard dilution is 80 mg in la4 250 mL NS) Route: IV; Rate: 25 ml/hr; Site: left forearm; 06:53 Drug: HYDROmorphone IVP 1 mg IVP once Route: IVP; Site: left forearm; la4 Medication: 02:14 VIS not applicable for this client. la4 Intake: 02:55 IV: 1000ml; Total: 1000ml. la4 Outcome: 05:30 ER care complete, transfer ordered by . sp4 06:55 Transferred by ground EMS to [facility], Transfer form completed. X-rays la4 sent w/ patient. 06:55 Condition: stable 06:55 Discharge instructions given to EMS, Instructed on the need for transfer, Demonstrated understanding of instructions, and need for transfer 06:58 Patient left the ED. la4 Signatures: Dispatcher [employer] EDMS Megan Paulino Jennifer [email or web address] Rafal Hamlin MD MD sp4 Ulysses Houser RN RN la4 Corrections: (The following items were deleted from the chart) 02:17 02:14 Inserted saline lock: 20 gauge in left forearm, using aseptic technique. quirino win
--- NOTE | 2023-03-01 05:30 | EDPHYS ---
Physician Documentation [facility] [place] Name: Debra Slaughter Age: 32 yrs Sex: Female : 1990 Arrival Date: 03/01/2023 Time: 01:40 Bed 16 Private MD: ED Physician Rafal Hamlin HPI: 03/01 01:44 This 32 yrs old Female presents to ER via EMS with complaints of Rectal Pain. sp4 01:44 -year-old female presents with EMS for cute onset of rectal pain after vaginal sp4 intercourse at home. Patient reports yesterday hysterectomy. Patient is here for evaluation of rectal pain. . 01:52 Patient states she has history of hysterectomy also history of ileostomy with reversal. sp4 Has had vaginal intercourse this evening when she did suddenly developed acute rectal pain moderate to severe associated with some rectal bleeding. No similar previous pain. . 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 - Social history:: Smoking status: Patient denies any tobacco usage or history of. - Family history:: not pertinent. ROS: 05:22 Constitutional: Negative for fever, chills, and weight loss, positive for the abdominal sp4 pain, moderate to severe 05:22 All other systems are negative, Exam: 05:22 Constitutional: This is a well developed, well nourished patient who is awake, alert, sp4 in mild to moderate distress secondary to pain. Head/Face: Normocephalic, atraumatic. Eyes: Pupils equal round and reactive to light, extra-ocular motions intact. Lids and lashes normal. Conjunctiva and sclera are not injected. Cornea within normal limits. Periorbital areas with no swelling, redness, or edema. ENT: Nares patent. No nasal discharge, no septal abnormalities noted. Tympanic membranes are normal and external auditory canals are clear. Oropharynx with no redness, swelling, or masses, exudates, or evidence of obstruction, uvula midline. Mucous membranes moist. Neck: Trachea midline, no thyromegaly or masses palpated, and no cervical lymphadenopathy. Supple, full range of motion without nuchal rigidity, or vertebral point tenderness. Chest/axilla: Normal chest wall appearance and motion. Nontender with no deformity. No lesions are appreciated. Cardiovascular: Regular rate and rhythm with a normal S1 and S2. No gallops, murmurs, or rubs. Normal PMI, no JVD. No pulse deficits. Respiratory: Lungs have equal breath sounds bilaterally, clear to auscultation and percussion. No rales, rhonchi or wheezes noted. No increased work of breathing, no retractions or nasal flaring. Abdomen/GI: Soft, with normal bowel sounds. No distension or tympany. No guarding . Positive for rebound tenderness with lower abdominal tenderness. Back: No spinal tenderness. No costovertebral tenderness. Pelvic Exam: Normal external genitalia. McKillop exam reveals intact vaginal cuff without bleeding upon prior. Rectal exam reveals no bleeding, no mass, rectal exam reveals no fissure or fistula, no sign of perforated rectum. Skin: Warm, dry with normal turgor. Normal color with no rashes, no lesions, and no evidence of cellulitis. MS/ Extremity: Pulses equal, no cyanosis. Neurovascular intact. Full, normal range of motion. Neuro: Awake and alert, GCS 15, oriented to person, place, time, and situation. Cranial nerves II-XII grossly intact. Motor strength 5/5 in all extremities. Sensory grossly intact. Psych: Awake, alert, with orientation to person, place and time. Behavior, mood, and affect are within normal limits Vital Signs: 01:44 BP 128 / 88; Pulse 95; Resp 20; Temp 98.9; Pulse Ox 100% on R/A; Weight 58.06 kg; la4 Height 5 ft. 6 in. ; Pain 10/10; 02:14 BP 119 / 80; Pulse 85; Resp 20; Pulse Ox 98% ; Pain 5/10; la4 02:55 BP 114 / 70; Pulse 65; Resp 18; Pulse Ox 97% ; Pain 8/10; la4 05:30 BP 106 / 62; Pulse 72; Resp 16; Pulse Ox 99% ; Pain 3/10; la4 06:23 BP 97 / 59; Pulse 72; Resp 18; Pulse Ox 99% ; la4 06:39 BP 100 / 61; Pulse 75; Resp 18; Pulse Ox 100% on R/A; Pain 8/10; la4 01:44 Body Mass Index 20.66 (58.06 kg, 167.64 cm) la4 01:44 Pain Scale: Adult la4 02:14 Pain Scale: Adult la4 02:55 Pain Scale: Adult la4 05:30 Pain Scale: Adult la4 06:39 Pain Scale: Adult la4 02:14 after morphine and toradol IVP la4 Chris Coma Score: 02:14 Eye Response: spontaneous(4). Motor Response: obeys commands(6). Verbal Response: la4 oriented(5). Total: 15. MDM: 01:51 Patient medically screened. sp4 04:21 ED course: PROCEDURE: Contrast-enhanced images of the abdomen and pelvis were performed sp4 utilizing 5 mm slice thickness at 5 mm interval reconstruction from the lung bases to the ischial tuberosities after the administration of IV contrast. In addition multiplanar reformats in the coronal and sagittal plane were obtained and reviewed. An individualized dose optimization technique, Automated Exposure Control, was utilized for the performed procedure. FINDINGS: Lung bases: The lung bases demonstrate to be clear. There is diffuse anterior abdominal free peritoneal air extending subcapsular aspect of the liver, anterior abdominal wall, umbilical region and down to the right lower quadrant where there is a region of a surgical suture as well as an area of a suture within the rectosigmoid colon. Liver: Mild fatty infiltration. Gallbladder: The gallbladder demonstrate to be normal. Adrenal glands: The adrenal glands demonstrate to be normal. Pancreas: The pancreas demonstrate to be normal. Spleen: The spleen demonstrate to be within normal limits. Kidneys: The kidneys demonstrate normal uptake of contrast media. There is no evidence for nephrolithiasis and/or hydronephrosis. There are no significant cystic lesions. GI: Grossly the unopacified stomach and small bowel demonstrate to be within normal limits. There is no definitive evidence for significant bowel perforation. The presence of free air could be related perhaps to recent either appendectomy and/or rectosigmoid colon surgery. Genitalia: The uterus is absent. There are no adnexal masses. Abdominal aorta: The aorta demonstrate to be within normal limits. Retroperitoneum:There is no retroperitoneal lymphadenopathy. There is no evidence for ascites and/or abnormal fluid collections. Bones: The bony structures demonstrate to be within normal limits. Soft tissues: The rest of the soft tissue and bony structures are within normal limits. IMPRESSION: Diffuse anterior abdominal free peritoneal air extending subcapsular aspect of the liver, anterior abdominal wall, umbilical region and down to the right lower quadrant where there is a region of a surgical suture as well as an area of a suture within the rectosigmoid colon. No definitive evidence for significant discernible bowel perforation. The presence of free air could be related perhaps to recent either bowel surgery and/or the possibility of dehiscence of surgical sutures appendix or rectosigmoid colon are of consideration correlate with recent surgery. Mild fatty infiltration of the liver. Status post hysterectomy. . 05:22 Differential diagnosis: hemorrhoids, fissure, abscess, pilonidal cyst, condyloma. Data sp4 reviewed: vital signs, nurses notes, EMS record, old medical records, lab test result(s), radiologic studies, CT scan. Consideration of Admission/Observation Escalation of care including admission/observation considered. ED course: There is sign of free intraperitoneal air extending to subcapsular aspect of the liver on CT scan, will still significant intraperitoneal air. . ED course: Patient was evaluated by Dr. Good who has determined that the patient is stable for ambulance transport. Patient then was staffed with Dr. Lake Robles who has requested the patient is transferred to [facility] or [facility]. Patient at this time stable for transport with EMS. . 05:56 ED course: And was accepted by [facility] attending internal medicine physician. sp4 03/01 01:51 Order name: CBC with Diff; Complete Time: 05:18 sp4 03/01 01:51 Order name: CMP; Complete Time: 05:18 sp4 03/01 01:51 Order name: Lipase; Complete Time: 05:18 sp4 03/01 01:51 Order name: Urinalysis w/ reflexes; Complete Time: 05:18 sp4 03/01 01:51 Order name: CT Abd/Pelvis - IV Contrast Only sp4 03/01 01:45 Order name: Pelvic Exam Setup; Complete Time: 03:30 sp4 03/01 01:51 Order name: IV Saline Lock; Complete Time: 02:19 sp4 03/01 01:51 Order name: Labs collected and sent; Complete Time: 02:19 sp4 Administered Medications: 02:00 Drug: NS 0.9% IV 1000 ml IV at 1 bolus Per protocol; 1000 mL bolus Route: IV; Rate: 1 la4 bolus; Site: left forearm; 02:55 Follow up: BP 114 / 70; Pulse 65 bpm; Resp 18 bpm; Pulse Ox 97% ; Pain 8/10 Adult; la4 Response: No adverse reaction; IV Status: Completed infusion; IV Intake: 1000ml 02:00 Drug: TORadol - Ketorolac IVP 30 mg IVP once Route: IVP; Site: left forearm; la4 02:00 Drug: Ondansetron IVP 4 mg IVP once; over 2 minutes Route: IVP; Site: right forearm; la4 02:00 Drug: morphine IVP or IV 4 mg IVP once over 4 mins Route: IVP; Infused Over: 4 mins; la4 Site: left forearm; 03:30 Drug: morphine IVP or IV 4 mg IVP once over 4 mins Route: IVP; Infused Over: 4 mins; la4 Site: left forearm; 04:33 Drug: HYDROmorphone IVP 1 mg IVP once Route: IVP; Site: left forearm; la4 05:30 Follow up: Response: No adverse reaction; Pain is decreased la4 05:30 Follow up: BP 106 / 62; Pulse 72 bpm; Resp 16 bpm; Pulse Ox 99% ; Pain 3/10 Adult la4 06:23 Follow up: BP 97 / 59; Pulse 72 bpm; Resp 18 bpm; Pulse Ox 99% ; Response: No adverse la4 reaction; Pain is decreased 04:33 Drug: metoCLOPramide IVP 10 mg IVP once; over 1 to 2 minutes Route: IVP; Site: left la4 forearm; 05:30 Follow up: Response: No adverse reaction la4 05:25 Drug: Piperacillin-Tazobactam IVPB 3.375 grams IVPB once over 60 mins; (mix in NS 100 la4 mL) Route: IVPB; Infused Over: 60 mins; Site: left forearm; 05:25 Drug: D5-NS IV 1000 ml IV at 125 ml/hr continuous Route: IV; Rate: 125 ml/hr; Site: la4 left forearm; 05:40 Drug: Pantoprazole IVP 80 mg IVP once Route: IVP; Site: left forearm; la4 05:40 Drug: Pantoprazole IV 8 mg/hr IV at 25 ml/hr continuous; (Standard dilution is 80 mg in la4 250 mL NS) Route: IV; Rate: 25 ml/hr; Site: left forearm; 06:53 Drug: HYDROmorphone IVP 1 mg IVP once Route: IVP; Site: left forearm; la4 Disposition Summary: 03/01/23 05:30 Transfer Ordered Notes: Transfer Location: [facility] sp4 Reason: Higher level of care sp4 Condition: Stable sp4 Problem: new sp4 Symptoms: are unchanged sp4 Accepting Physician: [facility] Attending , Gen Surgery(03/01/23 06:58) la4 Diagnosis - Acute colon perforation, Free intraperitoneal air, acute peritonitis secondary to sp4 colonic perforation Forms: - Medication Reconciliation Form sp4 - SBAR form sp4 Signatures: Dispatcher [employer] Rafal Fuentes MD MD sp4 Ulysses Houser RN RN la4 Corrections: (The following items were deleted from the chart) 06:58 05:30 [facility] Attending , Gen Surgery sp4 la4
--- NOTE | 2023-03-01 06:50 | CON ---
Date of Consultation: 03/01/2023 Reason For Consultation: Pneumoperitoneum. History Of Present Illness: The patient is a 32-year-old female who recently underwent a cecectomy w ith ileostomy and reversal by Dr. Robles in [place] about a year ago. She was in her usual state of he alth up until midnight this night when she was having intercourse with her and started having severe pain following which she came to the emergency room. She had a workup done. She was found t o have pneumoperitoneum. She is nauseous, but she has not thrown up. No diarrhea or constipation. No blood in her stool. No dysuria or hematuria. No sore throat, runny nose, cough, headaches, or di zziness. No chest pain. No fever or chills at this time. Review of Systems: Otherwise unremarkable. Past Medical History: Endometriosis. Past Surgical History: Cecectomy with ileostomy and reversal and hysterectomy. Please note, the crystal mayank was done laparoscopically. Allergies: NO ALLERGIES. Family History: Noncontributory. Social History: Reviewed. Physical Examination: Vital Signs: Stable. Blood pressure is in the one teens. Heart rate is between 60 and 80. She is afebrile. General: She is lying in bed, comfortable, not in any acute distress. Awake, alert and oriented x3. Head and Neck: No neck masses. No JVD. Throat clear. Neck is supple. Chest: Clear. Heart: S1, S2. Abdomen: Soft, nondistended. There is tenderness with minimal rebound in the lower abdomen in the p edilia region, left lower quadrant, right lower quadrant. There is no evidence of any peritonitis at this time. There is no rigidity. There is no involuntary or voluntary guarding at this time. Extremities: Adequately perfused, nontender. Neuro: Nonfocal. Laboratory Data: White count is 11. Electrolytes are within normal limits. CT of the abdomen and p edilia reviewed. She has pneumoperitoneum in the subcapsular liver region, anterior abdominal wall in the umbilical region and near the anastomosis. Assessment: Pneumoperitoneum. Recommendation: N.p.o., IV fluids, IV antibiotics and I discussed the case in detail with Dr. Lake Morel aas in [place]. He has accepted the patient to put transfer and the ER is in the process of initiati ng a transfer. /MODL Voice ID: [id number] Report ID: [id number]
[2023-03-01 08:16] VITALS: TEMP 98.9
[2023-03-01 08:22] VITALS: BP 100/61; O2SAT 100
--- NOTE | 2023-03-01 15:06 | RAD REPORT ---
EXAM DESCRIPTION: CT - Abdomen Pelvis W Contrast - 03/01/2023 8:56 am ADDENDUM #1 THIS REPORT CONTAINS FINDINGS THAT MAY BE CRITICAL TO PATIENT CARE: The findings were verbally discus sed via telephone conference with Dr. Rafal Hamlin at 3:49 AM RESOURCE TECHNICIAN on 03/01/2023. Discussed with physician that there is no evidence for recent surgery therefore findings are highly s uspicious for perforated viscus. The presence of air down into the pelvis suggests most likely coloni c in nature rather than gastric. Electronically signed by: Myles Johnson MD 03/01/2023 03:52 AM RESOURCE TECHNICIAN End of Addendum EXAM DESCRIPTION: Abdomen Pelvis W Contrast 03/01/2023 3:30 AM RESOURCE TECHNICIAN CLINICAL HISTORY: 32 years, Female, ABD PAIN COMPARISON: None TECHNIQUE: Contrast-enhanced images of the abdomen and pelvis were performed utilizing 5 mm slice th ickness at 5 mm interval reconstruction from the lung bases to the ischial tuberosities after the adm inistration of IV contrast. In addition multiplanar reformats in the coronal and sagittal plane were obtained and reviewed. An individualized dose optimization technique, Automated Exposure Control, was utilized for the perfo rmed procedure. FINDINGS: Lung bases: The lung bases demonstrate to be clear. There is diffuse anterior abdominal free peritoneal air extending subcapsular aspect of the liver, an terior abdominal wall, umbilical region and down to the right lower quadrant where there is a region of a surgical suture as well as an area of a suture within the rectosigmoid colon. Liver: Mild fatty infiltration. Gallbladder: The gallbladder demonstrate to be normal. Adrenal glands: The adrenal glands demonstrate to be normal. Pancreas: The pancreas demonstrate to be normal. Spleen: The spleen demonstrate to be within normal limits. Kidneys: The kidneys demonstrate normal uptake of contrast media. There is no evidence for nephroli thiasis and/or hydronephrosis. There are no significant cystic lesions. GI: Grossly the unopacified stomach and small bowel demonstrate to be within normal limits. There is no definitive evidence for significant bowel perforation. The presence of free air could be related p erhaps to recent either appendectomy and/or rectosigmoid colon surgery. Genitalia: The uterus is absent. There are no adnexal masses. Abdominal aorta: The aorta demonstrate to be within normal limits. Retroperitoneum: There is no retroperitoneal lymphadenopathy. There is no evidence for ascites and/or abnormal fluid collections. Bones: The bony structures demonstrate to be within normal limits. Soft tissues: The rest of the soft tissue and bony structures are within normal limits. IMPRESSION: Diffuse anterior abdominal free peritoneal air extending subcapsular aspect of the liver , anterior abdominal wall, umbilical region and down to the right lower quadrant where there is a reg ion of a surgical suture as well as an area of a suture within the rectosigmoid colon. No definitive evidence for significant discernible bowel perforation. The presence of free air could be related perhaps to recent either bowel surgery and/or the possibility of dehiscence of surgical baron tures appendix or rectosigmoid colon are of consideration correlate with recent surgery. Mild fatty infiltration of the liver. Status post hysterectomy. Electronically signed by: Myles Johnson MD 03/01/2023 03:41 AM RESOURCE TECHNICIAN Due to temporary technical issues with the PACS/Fluency reporting system, reports are being signed by the in house radiologists without review as a courtesy to insure prompt reporting. The interpreting radiologist is fully responsible for the content of the report.
== END ==
LOC: ER 01:40
DX: K63.1 Perforation of intestine (nontraumatic) (principal); K65.9 Peritonitis, unspecified; K66.9 Disorder of peritoneum, unspecified; Z90.710 Acquired absence of both cervix and uterus; Z98.890 Other specified postprocedural states; Z88.5 Allergy status to narcotic agent
CPT/HCPCS: 85025; 36415; 81003; 83690; 80053; 74177; 99285; Q9967; J2765; J2543; C9113; J1170 ×2; J2405; J7050; J7030

== ENCOUNTER 2024-12-10 21:53 | Emergency (ER) | payer BC ==
[2024-12-10] MEDS ORDERED: LIDOCAINE 1% MPF 5 ML VIAL ONE (23:14)
[2024-12-10] MEDS ORDERED: TDAP (DIPHTH,PERTUSS(ACELL),TET VAC) 0.5 ML VIAL IMVAC ONE (23:14)
[2024-12-10] MEDS ORDERED: AMOX/K CLAV 875 MG TAB ONE (23:14)
[2024-12-10] MEDS ORDERED: ACETAMINOPHEN 500 MG TAB ONE (23:14)
--- NOTE | 2024-12-10 23:42 | ER ---
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 Bleeding controlled. Coronavirus screen: At this time, the client does not indicate any symptoms associated with coronavirus-19. Ebola Screen: No symptoms or risks identified at this time. Complicating Factors: cat scratched left upper arm causing a laceration. Initial Sepsis Screen: Does the patient meet any 2 criteria? HR > 90 bpm. Does the patient have a suspected source of infection? No. Patient's initial sepsis screen is negative. Risk Assessment: Do you want to hurt yourself or someone else? Patient reports no desire to harm self or others. Onset of symptoms was December 10, 2024 at 21:15. 22:17 Method Of Arrival: Ambulatory il1 22:17 Acuity: DOMINICK 4 il1 Triage Assessment: 22:21 General: Appears in no apparent distress. Behavior is calm, cooperative, appropriate il1 for age. Pain: Complains of pain in left bicep Pain currently is 2 out of 10 on a pain scale. Quality of pain is described as stinging, Pain began suddenly, Is continuous. EENT: No signs and/or symptoms were reported regarding the EENT system. Neuro: Level of Consciousness is awake, alert, obeys commands, Oriented to person, place, time, situation, Appropriate for age. Cardiovascular: Patient's skin is warm and dry. Respiratory: Airway is patent Respiratory effort is even, unlabored, Respiratory pattern is regular, symmetrical. GI: No signs and/or symptoms were reported involving the gastrointestinal system. : No signs and/or symptoms were reported regarding the genitourinary system. Derm: Wound noted left bicep Wound is laceration from cat scratching. Musculoskeletal: Circulation, motion, and sensation intact. Range of motion: intact in all extremities. Injury Description: Laceration sustained to left bicep is not bleeding, caused by cat claw. 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 - Infectious Disease History:: Denies. - Social history:: Smoking status: Reported history of juuling and/or vaping. Screenin:[address] [facility] ED Fall Risk Assessment (Adult) History of falling in the last 3 months, tb4 including since admission No falls in past 3 months (0 pts) Confusion or Disorientation No (0 pts) Intoxicated or Sedated No (0 pts) Impaired Gait No (0 pts) Mobility Assist Device Used No (0 pt) Altered Elimination No (0 pt) Score/Fall Risk Level 0 - 2 = Low Risk Oriented to surroundings, Maintained a safe environment. Abuse screen: Denies threats or abuse. Denies injuries from another. Nutritional screening: No deficits noted. Tuberculosis screening: No symptoms or risk factors identified. Assessment: 23:25 General: Appears uncomfortable, Behavior is calm, cooperative. Pain: Complains of pain tb4 in left bicep Pain does not radiate. Pain currently is 5 out of 10 on a pain scale. Quality of pain is described as burning, Pain began suddenly, Is continuous, Alleviated by nothing. 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 Full function Gait is steady, Speech is normal, Facial symmetry appears normal. Cardiovascular: Capillary refill < 3 seconds is brisk in bilateral fingers Patient's skin is warm and dry. Respiratory: Airway is patent Respiratory effort is even, unlabored, Respiratory pattern is regular, symmetrical. GI: No deficits noted. No signs and/or symptoms were reported involving the gastrointestinal system. : No deficits noted. No signs and/or symptoms were reported regarding the genitourinary system. EENT: No deficits noted. No signs and/or symptoms were reported regarding the EENT system. Derm: Skin is intact, is healthy with good turgor, Skin is dry, Skin is normal, Skin temperature is warm Wound noted left bicep Wound is 2cm laceration to left upper arm. Musculoskeletal: Circulation, motion, and sensation intact. Range of motion: intact in all extremities. Injury Description: Laceration sustained to left bicep is clean, 0.5 to 2.5 cm long, was sustained 30-60 minutes ago. is bleeding a small amount. Vital Signs: 22:17 BP 145 / 91; Pulse 104; Resp 18; Temp 98.2; Pulse Ox 100% ; Weight 68.04 kg; Height 5 me1 ft. 6 in. ; Pain 2/10; 23:25 BP 131 / 87; Pulse 62; Resp 19; Pulse Ox 99% on R/A; Pain 5/10; tb4 12/11 00:09 BP 127 / 71; Pulse 88; Resp 19; Temp 98.3; Pulse Ox 100% on R/A; Pain 1/10; tb4 12/10 22:17 Body Mass Index 24.21 (68.04 kg, 167.64 cm) me1 12/10 22:17 Pain Scale: Adult me1 23:25 Pain Scale: Adult tb4 12/11 00:09 Pain Scale: Adult tb4 ED Course: 12/10 21:56 Patient arrived in ED. gm2 21:57 Archie Sommers PA-C is [facility]. cp 21:57 Rafal Hamlin MD is Attending Physician. cp 22:19 Triage completed. me1 22:19 Arm band placed on Patient placed in waiting room. me1 23:25 Patient has correct armband on for positive identification. Bed in low position. Call tb4 light in reach. Provided Education on: Take medications as prescribed. Client placed on continuous cardiac and pulse oximetry monitoring. NIBP monitoring applied. Pulse ox on. Door closed. 23:25 Assist provider with laceration repair on left bicep that was 2.5 cm. or less using tb4 sutures. Set up tray. Performed by Archie Sommers PA-C Dressed with 4X4s, Kerlix, Neosporin, Patient tolerated well. 12/11 00:11 Patient did not have IV access during this emergency room visit. tb4 Administered Medications: 12/10 23:21 Drug: Amoxicillin-Clavulanate PO 875 mg PO once Route: PO; tb4 23:36 Follow up: Response: No adverse reaction tb4 23:21 Drug: Acetaminophen PO 1000 mg PO once Route: PO; tb4 23:36 Follow up: Response: No adverse reaction tb4 23:22 Drug: Boostrix Tdap IM 0.5 ml IM once; as a single dose Route: IM; Site: left deltoid; tb4 23:36 Follow up: Response: No adverse reaction tb4 23:35 Drug: Lidocaine Infiltration (2 %) 5 ml 5 ml Infiltration once; to bedside {Note: tb4 Provider administer.} Volume: 5 ml; Route: Infiltration; 12/11 00:08 Follow up: Response: No adverse reaction tb4 Medication: 12/10 23:25 Vaccine Information Statement (VIS) provided today. Questions and/or concerns tb4 addressed. VIS edition date: October 11, 2020. Outcome: 23:40 Discharge ordered by MD. quintero 12/11 00:03 Patient left the ED. vc1 00:10 Discharged to home ambulatory, tb4 00:10 Condition: stable 00:10 Discharge instructions given to patient, Instructed on discharge instructions, follow up and referral plans. Demonstrated understanding of instructions, follow-up care, medications, Prescriptions given X 1, Signatures: Archie Sommers, PA-C PA-C Amanda Gaona RN RN vc1 Luiza Bonilla RN RN me1 Sonya Tomas 2 Mel Leger, RN RN tb4 Corrections: (The following items were deleted from the chart) 12/10 22:21 22:19 LMP 11/27/2024, unknown me1 me1
--- NOTE | 2024-12-10 23:42 | EDPHYS ---
Physician Documentation [facility] Name: Debra Slaughter Age: 34 yrs Sex: Female : 1990 Arrival Date: 12/10/2024 Time: 21:53 Bed 17 Private MD: ED Physician Rafal Hamlin HPI: 12/10 23:00 This 34 yrs old Female presents to ER via Ambulatory with complaints of cp Laceration To Arm. 23:00 The patient has a laceration occurred at home, and from pet cat after nails used to cp scratch arm. 23:00 Onset: The symptoms/episode began/occurred just prior to arrival. Associated signs and cp symptoms: The patient has no apparent associated signs or symptoms. 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 - Infectious Disease History:: Denies. - Social history:: Smoking status: Reported history of juuling and/or vaping. ROS: 23:05 Skin: Positive for laceration(s), of the volar side of left upper arm, cp Exam: 23:10 Constitutional: The patient appears in no acute distress, alert, awake, comfortable, cp non-toxic, well developed, well nourished, 23:10 Head/Face: Normocephalic, atraumatic. cp 23:10 Cardiovascular: Rate: normal, 23:10 Respiratory: the patient does not display signs of respiratory distress, Respirations: normal, 23:10 Abdomen/GI: Inspection: abdomen appears normal, 23:10 Skin: injury, laceration(s), of the volar side of left upper arm, that can be described as no foreign body, linear, no active bleeding, Vital Signs: 22:17 BP 145 / 91; Pulse 104; Resp 18; Temp 98.2; Pulse Ox 100% ; Weight 68.04 kg; Height 5 me1 ft. 6 in. ; Pain 2/10; 23:25 BP 131 / 87; Pulse 62; Resp 19; Pulse Ox 99% on R/A; Pain 5/10; tb4 12/11 00:09 BP 127 / 71; Pulse 88; Resp 19; Temp 98.3; Pulse Ox 100% on R/A; Pain 1/10; tb4 12/10 22:17 Body Mass Index 24.21 (68.04 kg, 167.64 cm) me1 12/10 22:17 Pain Scale: Adult me1 23:25 Pain Scale: Adult tb4 12/11 00:09 Pain Scale: Adult tb4 Laceration: 12/10 23:37 Wound Repair of 2cm ( 0.8in ) subcutaneous laceration to volar side of left upper arm. cp Linear shaped.. Distal neuro/vascular/tendon intact. Anesthesia: Local anesthetic administered with 5 mls of 2% lidocaine. Wound prep: Moderate cleansing by me, Wound irrigation by me. Skin closed with 1 4-0 Prolene using loose closure. Dressed with Bacitracin, 4x4's. Patient tolerated well. MDM: 22:15 Medical Screening Exam initiated cp 23:40 Data reviewed: vital signs, nurses notes, and as a result, I will discharge patient. cp 23:40 I considered the following discharge prescriptions or medication management in the emergency department Medications were administered in the Emergency Department. See MAR. Counseling: I had a detailed discussion with the patient and/or guardian regarding the historical points, exam findings, and any diagnostic results supporting the discharge/admit diagnosis, to return to the emergency department if symptoms worsen or persist or if there are any questions or concerns that arise at home. Special discussion: I discussed in detail with the patient the higher chance of wound infection based on his presenting history. 12/10 22:59 Order name: Dressing - Wound; Complete Time: 23:36 cp 12/10 22:59 Order name: Gloves, Sterile; Complete Time: 23:36 cp 12/10 22:59 Order name: Setup Suture Tray; Complete Time: 23:22 cp 12/10 23:37 Order name: Wound dressing; Complete Time: 00:09 cp Administered Medications: 23:21 Drug: Amoxicillin-Clavulanate PO 875 mg PO once Route: PO; tb4 23:36 Follow up: Response: No adverse reaction tb4 23:21 Drug: Acetaminophen PO 1000 mg PO once Route: PO; tb4 23:36 Follow up: Response: No adverse reaction tb4 23:22 Drug: Boostrix Tdap IM 0.5 ml IM once; as a single dose Route: IM; Site: left deltoid; tb4 23:36 Follow up: Response: No adverse reaction tb4 23:35 Drug: Lidocaine Infiltration (2 %) 5 ml 5 ml Infiltration once; to bedside {Note: tb4 Provider administer.} Volume: 5 ml; Route: Infiltration; 12/11 00:08 Follow up: Response: No adverse reaction tb4 Disposition: 17:37 Chart complete. cp 20:43 Co-signature as Attending Physician, Rafal Hamlin MD I agree with the assessment sp4 and plan of care. I reviewed the patient's care provided by the Advanced Practice Provider and agree with the diagnosis and treatment plan. Disposition Summary: 12/10/24 23:40 Discharge Ordered Notes: Location: Home cp Problem: new cp Symptoms: have improved cp Condition: Stable cp Diagnosis - Laceration of Left Upper Arm without Foreign Body cp Followup: cp - With: Private Physician - When: 7 - 10 days - Reason: Staple/Suture removal Discharge Instructions: - Discharge Summary Sheet cp - Laceration Care, Adult cp - Sutured Wound Care cp Forms: - Medication Reconciliation Form cp - Antibiotic Education cp - Prescription Opioid Use cp - Patient Portal Instructions cp - Leadership Thank You Letter cp Prescriptions: - Augmentin 875-125 mg Oral Tablet - take 1 tablet ORAL route every 12 hours for 10 days; 20 tablet; Refills: 0, cp Product Selection Permitted Signatures: Archie Sommers PA-C PA-C cp Rafal Hamlin MD MD sp4 Luiza Bonilla, CHRISTIE RN me1 Mel Leger RN RN tb4
[2024-12-11 00:58] VITALS: TEMP 98.2
[2024-12-11 01:00] VITALS: BP 131/87; O2SAT 99
== END 2024-12-11 00:03 | disposition home or self-care (01) ==
LOC: ER 21:53
PROC: 0JQF3ZZ Repair Left Upper Arm Subcutaneous Tissue and Fascia, Percutaneous Approach (ICD-10-PCS; principal; 2024-12-10)
DX: S41.112A Laceration without foreign body of left upper arm, initial encounter (principal); W55.03XA Scratched by cat, initial encounter; Y93.9 Activity, unspecified; Y92.019 Unspecified place in single-family (private) house as the place of occurrence of the external cause; Z23 Encounter for immunization
CPT/HCPCS: 90715; 96372; 99284; 12001; J2003